=== PATIENT | male | born 1990 | race Caucasian/White ===

== ENCOUNTER 2020-05-26 23:13 | Emergency (ER) | payer SELFPAY ==
[~2020-05-26] VITALS: Ht 182.8 cm; Wt 104.3 kg
[~2020-05-26 23:13] MED LIST: EES400 MG PO
[2020-05-27] MEDS ORDERED: PREDNISONE20 M1 PO (00:56)
== END 2020-05-27 01:07 | disposition home or self-care (01) ==
LOC: ED 23:13
DX: L25.9 Unspecified contact dermatitis, unspecified cause (principal); Z91.040 Latex allergy status

== ENCOUNTER 2020-09-16 17:51 | Emergency (ER) | payer SELFPAY ==
[~2020-09-16] VITALS: Ht 182.8 cm; Wt 108.9 kg
[~2020-09-16 17:51] MED LIST changes: +PREDNISONE20 M1 PO
[2020-09-16] MEDS ORDERED: KEFLEX500 M1 PO (19:35)
[2020-09-16] MEDS ORDERED: PREDNISONE50 MG PO (19:35)
== END 2020-09-16 19:40 | disposition home or self-care (01) ==
LOC: ED 17:51
DX: T63.441A Toxic effect of venom of bees, accidental (unintentional), initial encounter (principal); L03.114 Cellulitis of left upper limb; Y92.89 Other specified places as the place of occurrence of the external cause

== ENCOUNTER 2020-11-10 13:25 | Emergency (ER) | payer OTHER ==
[~2020-11-10] VITALS: Ht 185.4 cm; Wt 104.3 kg
[~2020-11-10 13:25] MED LIST changes: +KEFLEX500 M1 PO; +PREDNISONE50 MG PO
== END 2020-11-10 18:30 | disposition home or self-care (01) ==
LOC: ED 13:25
DX: R59.0 Localized enlarged lymph nodes (principal)

== ENCOUNTER 2021-05-02 19:44 | Emergency (ER) | payer SELFPAY ==
[~2021-05-02] VITALS: Ht 185.4 cm; Wt 113.4 kg
[2021-05-02] MEDS ORDERED: CEPHALEXIN500 M1 PO (20:38)
== END 2021-05-02 20:41 | disposition home or self-care (01) ==
LOC: ED 19:44
DX: S90.811A Abrasion, right foot, initial encounter (principal); L08.89 Other specified local infections of the skin and subcutaneous tissue; Z79.899 Other long term (current) drug therapy; X58.XXXA Exposure to other specified factors, initial encounter; Y93.89 Activity, other specified; Y92.89 Other specified places as the place of occurrence of the external cause; Y99.9 Unspecified external cause status

== ENCOUNTER → 2024-05-25 | Outpatient (CLI) | payer OTHER ==
[~2024-05-25] MED LIST changes: +CEPHALEXIN500 M1 PO
[2024-05-25 10:27] LABS: HEMATOCRIT 47.1 % (42.0-52.0); MEAN CELL VOLUME 85.8 fl (80.0-94.0); MEAN CORPUSCULAR HGB CONC 33.8 g/dl (33.0-37.0); MEAN PLATELET VOLUME 9.6 fl (9.6-12.3); PLATELET COUNT AUTOMATED 267 10*3/uL (130-400); RED BLOOD COUNT 5.49 10*6/uL (4.50-5.90); RED CELL DISTRI WIDTH 13.2 % (0-14.5); WHITE BLOOD COUNT 9.2 10*3/uL (4.8-10.8)
[2024-05-25 10:30] LABS: MANUAL DIFF REFLEX YES
[2024-05-25 11:04] LABS: ATYPICAL LYMPHS 1 % (0-0); BURR CELLS FEW; PLATELET SUFFICIENCY NORMAL (NORMAL); POLYCHROMASIA SLIGHT; TOTAL CELLS COUNTED 100 #CELLS
[2024-05-25 11:08] LABS: ALKALINE PHOSPHATASE 110 U/L (46-116); BUN 18 mg/dl (9-23); CHLORIDE 105 mmol/L (98-107); CHOLESTEROL 180 mg/dL (<200); POTASSIUM 4.5 mmol/L (3.4-5.1); SGPT/ALT 119 U/L (5-49); TOTAL PROTEIN 7.6 gm/dL (6.0-8.0); TRIGLYCERIDES 488 mg/dl (<150)
[2024-05-25 11:31] LABS: VITAMIN D, 25-HYDROXY 23.3 ng/mL (30-100)
== END | disposition home or self-care (01) ==
LOC: LAB 10:02
PROVIDERS: ATTEND Nurse Practitioner Family
DX: Z13.220 Encounter for screening for lipoid disorders (principal); Z13.0 Encounter for screening for diseases of the blood and blood-forming organs and certain disorders involving the immune mechanism; Z13.228 Encounter for screening for other metabolic disorders; Z76.89 Persons encountering health services in other specified circumstances; R20.2 Paresthesia of skin

== ENCOUNTER → 2024-06-29 | Outpatient (CLI) | payer OTHER ==
[2024-06-29 07:57] LABS: HEMATOCRIT 44.5 % (42.0-52.0); MEAN CELL VOLUME 85.4 fl (80.0-94.0); MEAN CORPUSCULAR HGB 28.8 pg (27.0-31.0); MEAN CORPUSCULAR HGB CONC 33.7 g/dl (33.0-37.0); PLATELET COUNT AUTOMATED 270 10*3/uL (130-400); RED BLOOD COUNT 5.21 10*6/uL (4.50-5.90); RED CELL DISTRI WIDTH 13.2 % (0-14.5); WHITE BLOOD COUNT 8.6 10*3/uL (4.8-10.8)
[2024-06-29 07:58] LABS: MANUAL DIFF REFLEX YES
[2024-06-29 08:15] LABS: ALKALINE PHOSPHATASE 94 U/L (46-116); BUN 14 mg/dl (9-23); CHLORIDE 107 mmol/L (98-107); POTASSIUM 4.1 mmol/L (3.4-5.1); SGPT/ALT 94 U/L (5-49); TOTAL PROTEIN 7.3 gm/dL (6.0-8.0)
[2024-06-29 08:37] LABS: ATYPICAL LYMPHS 1 % (0-0); BASOPHILS 1 % (0-1); PLATELET SUFFICIENCY NORMAL (NORMAL); TOTAL CELLS COUNTED 100 #CELLS
== END | disposition home or self-care (01) ==
LOC: LAB 07:33
PROVIDERS: ATTEND Nurse Practitioner Family
DX: R79.89 Other specified abnormal findings of blood chemistry (principal); R74.8 Abnormal levels of other serum enzymes

== ENCOUNTER → 2024-07-07 | Outpatient (CLI) | payer OTHER | END | disposition home or self-care (01) | LOC: LAB 14:38 | PROVIDERS: ATTEND Nurse Practitioner Family | DX: L91.8 Other hypertrophic disorders of the skin (principal) ==

== ENCOUNTER → 2024-08-11 | Outpatient (CLI) | payer OTHER ==
[2024-08-11 16:54] LABS: MEAN CELL VOLUME 85.5 fl (80.0-94.0); MEAN CORPUSCULAR HGB 29.9 pg (27.0-31.0); MEAN PLATELET VOLUME 8.9 fl (9.6-12.3); PLATELET COUNT AUTOMATED 259 10*3/uL (130-400); RED BLOOD COUNT 5.38 10*6/uL (4.50-5.90); RED CELL DISTRI WIDTH 13.2 % (0-14.5); WHITE BLOOD COUNT 10.5 10*3/uL (4.8-10.8)
[2024-08-11 17:03] LABS: MANUAL DIFF REFLEX YES
[2024-08-11 17:36] LABS: ATYPICAL LYMPHS 1 % (0-0); BASOPHILS 1 % (0-1); PLATELET SUFFICIENCY NORMAL (NORMAL); TOTAL CELLS COUNTED 100 #CELLS
== END | disposition home or self-care (01) ==
LOC: LAB 16:38
PROVIDERS: ATTEND Nurse Practitioner Family
DX: R79.89 Other specified abnormal findings of blood chemistry (principal)

== ENCOUNTER → 2024-08-19 | Outpatient (CLI) | payer OTHER | END | disposition home or self-care (01) | LOC: RAD 16:53 | PROVIDERS: ATTEND Nurse Practitioner Family | DX: J98.11 Atelectasis (principal); R06.02 Shortness of breath; R79.89 Other specified abnormal findings of blood chemistry ==

== ENCOUNTER → 2025-09-21 | Outpatient (CLI) | payer OTHER ==
[2025-09-21 17:11] LABS: MEAN CELL VOLUME 88.3 fl (80.0-94.0); MEAN CORPUSCULAR HGB 28.2 pg (27.0-31.0); MEAN PLATELET VOLUME 9.9 fl (9.6-12.3); NUCLEATED RED BLOOD CELL 0.0 % (0.0-0.0); NUCLEATED RED BLOOD CELL 0.0 10*3/uL (0.0-0.0); PLATELET COUNT AUTOMATED 313 10*3/uL (130-400); RED CELL DISTRI WIDTH 13.2 % (0-14.5)
[2025-09-21 17:21] LABS: MANUAL DIFF REFLEX YES
[2025-09-21 17:39] LABS: BUN 16 mg/dl (9-23); LDL CHOLESTEROL 69 mg/dL (9-159); SGPT/ALT 75 U/L (5-49); VITAMIN D, 25-HYDROXY 24.0 ng/mL (30-100)
[2025-09-21 18:05] LABS: PLATELET SUFFICIENCY NORMAL (NORMAL)
[2025-09-22 12:08] LABS: ANTI-DSDNA ANTIBODIES 2 IU/mL (0-9); ANTI-RNP ANTIBODIES <0.2 AI (0.0-0.9); ANTICHROMATIN ANTIBODIES <0.2 AI (0.0-0.9); ANTISCLERODERMA-70 AB <0.2 AI (0.0-0.9)
== END | disposition home or self-care (01) ==
LOC: ZRHCWE 16:59
PROVIDERS: ATTEND Nurse Practitioner Family
DX: E55.9 Vitamin D deficiency, unspecified (principal); E78.2 Mixed hyperlipidemia; J30.2 Other seasonal allergic rhinitis; R20.2 Paresthesia of skin; R79.89 Other specified abnormal findings of blood chemistry; M25.50 Pain in unspecified joint